=== PATIENT | male | born 1950 | race Caucasian/White ===

== ENCOUNTER 2016-09-26 12:16 | Emergency (ER) | payer OTHER ==
[2016-09-26] MEDS ORDERED: SODIUM CHLORIDE 0.9% 500 ML ONE (13:00)
[2016-09-26] MEDS ORDERED: ASPIRIN CHEWTAB 81 MG TABLET ONE (13:42)
[2016-09-26 13:49] LABS: ABSOLUTE NEUTROPHIL COUNT 10.7 K/mm3 (1.8-7.7); BASO % 0.1 % (0.2-1.0); EOS # 0.1 (0.0-0.5); EOS % 0.4 % (0.9-2.9); HEMATOCRIT 32.2 % (32.0-52.0); HEMOGLOBIN 10.2 gm/l (14.0-18.0); IMM NEUT # 0.1 K/mm3 (0-0.2); IMM NEUT% 0.4 % (0-1); LYMPH # 1.4 (1.0-4.8); LYMPH % 9.9 % (15-45); MEAN CELL VOLUME 101.9 fl (80.0-94.0); MEAN CORPUSCULAR HEMOGLOBIN 32.3 pg (27.0-31.0); MEAN CORPUSCULAR HGB CONC 31.7 g/dl (33.0-37.0); MEAN PLATELET VOLUME 9.5 fl (7.4-10.4); MONO # 1.5 (0.0-0.8); MONO % 10.8 % (4-12); NEUT % 78.4 % (43-75); PLATELET COUNT 311 K/mm3 (130-400); RED CELL DISTRIBUTION WIDTH 13.6 % (11.5-14.5)
[2016-09-26 13:58] LABS: TROPONIN I < 0.01 ng/ml (0.0-0.06)
[2016-09-26 14:01] LABS: CKMB ISOENZYME 10.8 ng/ml (0.6-6.3)
[2016-09-26 14:02] LABS: ALB/GLOB RATIO 1.2 (>1.0); ALBUMIN 3.9 gm/dL (3.5-5.7); CALCIUM 9.4 mg/dL (8.6-10.3)
[2016-09-26] MEDS ORDERED: LIDOCAINE 2% UROJECT 10 ML ONE (14:29)
--- NOTE | 2016-09-26 14:58 | CT ---
HEAD CT WITHOUT CONTRAST HISTORY: Weakness, acute mental status change. No intravenous contrast administered. Contiguous axial images acquired from skull base to vertex. COMPARISON: 04/08/2011 BRAIN VOLUME: Findings of mild to moderate volume loss, mildly increased over the interval. VENTRICULAR SIZE:No gross ventriculomegaly. WHITE MATTER: Extensive hypoattenuation compatible with microvascular disease. More focal hypoattenuation of the left frontal aspect compatible with postischemic change. INTRACRANIAL VASCULATURE: Atherosclerotic calcifications. FOCAL MASS EFFECT:None. ACUTE INTRACRANIAL HEMORRHAGE:None. CALVARIUM:Grossly intact. VISIBLE PARANASAL SINUSES AND MASTOID AIR CELLS:Grossly clear. IMPRESSION: Findings of microvascular disease and progressive volume loss when compared to prior study. No mass effect or acute intracranial hemorrhage. Evidence of intracranial atherosclerotic disease. Findings discussed with Dr. Hays of the Emergency Medicine clinical service on 09/26/2016 at 1455 hours.
--- NOTE | 2016-09-26 15:04 | RAD ---
CHEST 2 VIEWS HISTORY: Weakness. Frontal and lateral chest radiographs dated 09/26/2016. COMPARISON: 03/05/2016. FINDINGS: LUNG VOLUMES: Diminished. FOCAL AIRSPACE OPACITY: No gross airspace consolidation. PLEURAL EFFUSION: None. CARDIOMEDIASTINAL SILHOUETTE: Tortuous aorta. Mild to moderate vascular congestion. PNEUMOTHORAX: None identified. OSSEOUS STRUCTURES: Thoracic kyphosis and disc degeneration. IMPRESSION: Low lung volumes without moy airspace consolidation or pulmonary edema. Mild to moderate vascular congestion, which may be exaggerated by hypoventilatory. Thoracic spine kyphosis and spondylosis.
[2016-09-26 15:21] LABS: SPECIFIC GRAVITY 1.015 (1.001-1.030); URINE BILIRUBIN NEGATIVE (NEGATIVE); URINE BLOOD 3+ (NEGATIVE); URINE GLUCOSE (UA) NEGATIVE (NEGATIVE); URINE LEUKOCYTE ESTERASE 2+ (NEGATIVE); URINE NITRITE POSITIVE (NEGATIVE); URINE PROTEIN 2+ (NEGATIVE); URINE UROBILINOGEN NORMAL (0-1 mg/dl)
[2016-09-26 15:26] LABS: URINE APPEARANCE SL CLOUDY; URINE COLOR AMBER
[2016-09-26 15:36] LABS: URINE BACTERIA 3+; URINE EPITHELIAL CELLS 0-2 /hpf; URINE RBC 0-2 /hpf; URINE WBC >50 /hpf
[2016-09-26] MEDS ORDERED: CEFTRIAXONE 1 GRAM DUPLEX 50 ML IV ONE (15:47)
== END 2016-09-26 16:40 | disposition home or self-care (01) ==
LOC: ED 12:16
DX: N39.0 Urinary tract infection, site not specified (principal); E03.9 Hypothyroidism, unspecified; E78.00 Pure hypercholesterolemia, unspecified; F79 Unspecified intellectual disabilities
CPT/HCPCS: 82150; 85025; 82550; 82553; 87086; 80053; 87186; 84484; 81001; 71020; 70450; 99284 ×2; 96361 ×2; 96365; A9270 ×2; J7040; J0696